=== PATIENT | male | born 1935 | race Caucasian/White ===

== ENCOUNTER 2017-07-08 16:01 | Inpatient (IN) | payer MEDICARE, OTHER ==
[~2017-07-08] VITALS: Ht 167.6 cm; Wt 64.4 kg
[2017-07-08 17:02] LABS: BASOPHILS % (AUTO) 0.2 % (0.0-2.0); EOSINOPHILS # (AUTO) 0.1 /CMM (0.0-0.7); EOSINOPHILS % (AUTO) 1.4 % (0.0-6.0); HEMATOCRIT 28 % (39-51); HEMOGLOBIN 9.4 g/dL (13.5-17.5); LYMPHOCYTES # (AUTO) 0.8 /CMM (0.8-4.8); LYMPHOCYTES % (AUTO) 10.1 % (20.0-44.0); MEAN CORPUSCULAR HEMOGLOBIN 29 PG (26.0-33.0); MEAN CORPUSCULAR HGB CONC 34 g/dl (31.0-36.0); MEAN CORPUSCULAR VOLUME 86 fL (80-96); MONOCYTES # (AUTO) 0.3 /CMM (0.1-1.30); MONOCYTES % (AUTO) 3.3 % (2.0-12.0); NEUTROPHILS # (AUTO) 6.7 /CMM (1.8-8.9); PLATELET COUNT (AUTO) 162 /CMM (150-450); RDW COEFFICIENT OF VARIATION 16.4 (11.5-15.0); RED BLOOD CELL COUNT(AUTO) 3.24 MIL/uL (4.5-6.0); WHITE BLOOD COUNT (AUTO) 7.9 K/uL (4.3-11.0)
[2017-07-08 17:10] LABS: APPEARANCE,URINE Clear (CLEAR); BILIRUBIN,URINE Negative (NEGATIVE); BLOOD, URINE Trace-intact Ery/uL (NEGATIVE); COLOR,URINE Yellow (YELLOW); KETONES,URINE Negative (NEGATIVE); LEUKOCYTE ESTERASE ,URINE Trace (NEGATIVE); NITRITE, URINE Negative (NEGATIVE); PROTEIN,URINE Negative (NEGATIVE); UGLUCOSE Negative (NEGATIVE); UROBILINOGEN,URINE 0.2 EU/dL (0.2)
[2017-07-08 17:14] LABS: CALCIUM, SERUM 7.8 mg/dL (8.5-10.1); CARBON DIOXIDE 29 mmol/L (21-32); CHLORIDE 101 mmol/L (98-107); CREATININE 0.8 mg/dL (0.6-1.3); GLUCOSE 105 mg/dL (74-106); POTASSIUM 3.9 mmol/L (3.5-5.1); SODIUM SERUM 137 mmol/L (136-145); UREA NITROGEN, BLOOD 32 mg/dL (7-18)
[2017-07-08 17:20] LABS: ALANINE AMINOTRANSFERASE 106 U/L (12-78); ALBUMIN 1.7 g/dL (3.4-5.0); ALKALINE PHOSPHATASE 129 U/L (46-116); ASPARTATE AMINOTRANSFERASE 71 U/L (15-37); BILIRUBIN,DIRECT 0.3 mg/dL (0.0-0.2); BILIRUBIN,TOTAL 0.7 mg/dL (0.2-1.0); TOTAL PROTEIN, SERUM 5.5 g/dL (6.4-8.2)
[2017-07-08 17:23] LABS: TROPONIN I < 0.017 ng/mL (0.00-0.056)
[2017-07-08 17:26] LABS: INR 1.36 (0.85-1.15)
[2017-07-08 17:30] LABS: BACTERIA,URINE Few /HPF (None Seen); CALCIUM OXALATE CRYSTALS,UR Rare /HPF (None Seen); SQUAMOUS EPITHELIAL CELL,UR Rare /HPF (None Seen); YEAST,URINE Moderate /HPF (None Seen)
[2017-07-08] MEDS ORDERED: ZINC220T PO (17:46)
[2017-07-08] MEDS ORDERED: DOCU100C36 PO (17:46)
[2017-07-08] MEDS ORDERED: ACET-868 PO ×2 (17:46)
[2017-07-08] MEDS ORDERED: ATOR20TA PO (17:46)
[2017-07-08] MEDS ORDERED: CRAN425C6 PO (17:46)
[2017-07-08] MEDS ORDERED: APIX5TAB PO (17:46)
[2017-07-08] MEDS ORDERED: POTA500T PO (17:46)
[2017-07-08] MEDS ORDERED: CRAN3875 PO (17:46)
[2017-07-08] MEDS ORDERED: DILT30TA35 PO (17:46)
[2017-07-08] MEDS ORDERED: FURO40TA5 PO (17:46)
[2017-07-08] MEDS ORDERED: FINA5TAB11 PO (17:46)
[2017-07-08] MEDS ORDERED: LEVO500T75 PO (17:46)
[2017-07-08] MEDS ORDERED: HYDR-552 PO (17:46)
[2017-07-08] MEDS ORDERED: MULT-213 PO (17:46)
[2017-07-08] MEDS ORDERED: OMEP40CA37 PO (17:46)
[2017-07-08] MEDS ORDERED: MAGN400O6 PO (17:46)
[2017-07-08] MEDS ORDERED: IPRA3AMP IH (17:46)
[2017-07-08] MEDS ORDERED: ASCO-340 PO (17:46)
[2017-07-08] MEDS ORDERED: METO25TA6 PO (17:46)
[2017-07-08] MEDS ORDERED: PIPERACILLIN /TAZOBACTAM 3.375 G in IV D5W 50 ML IV ONE (19:30)
[2017-07-08] MEDS ORDERED: VANCOMYCIN 1 GM in IV D5W 250 ML IV ONE (19:30)
[2017-07-08] MEDS ORDERED: VANCOMYCIN 1 GM VIAL ONE (19:34)
[2017-07-08] MEDS ORDERED: PIPERACILLIN /TAZOBACTAM 3.375 G VIAL IV ONE (19:34)
[2017-07-08 20:30] VITALS: BP 102/58
[2017-07-08] MEDS ORDERED: ACETAMINOPHEN 325 MG TABLET PO PRN (21:00)
[2017-07-08] MEDS ORDERED: ZOLPIDEM TARTRATE 5 MG TABLET PO PRN (21:00)
[2017-07-08] MEDS ORDERED: ONDANSETRON HCL/PF 4 MG/2 ML VIAL IVP PRN (21:00)
[2017-07-08] MEDS ORDERED: DAKINS QUARTER STRENGTH (0.125%) 480 ML BOTTLE TOP PRN (21:00)
[2017-07-08] MEDS ORDERED: HYDROCODONE/APAP 5/325MG 1 EACH TABLET PO PRN (21:00)
[2017-07-08] MEDS: ATORVASTATIN 10 MG TABLET PO SCH (22:31)
[2017-07-09] MEDS ORDERED: PIPERACILLIN /TAZOBACTAM 3.375 G VIAL IV ONE ×2 (01:08→05:25)
[2017-07-09] MEDS: PIPERACILLIN /TAZOBACTAM 3.375 G in IV D5W 100 ML IV SCH ×3 (01:30→13:44)
[2017-07-09] MEDS: DILTIAZEM HCL 30 MG TABLET PO SCH ×4 (05:35→18:00)
[2017-07-09 06:38] LABS: BASOPHILS % (AUTO) 0.3 % (0.0-2.0); EOSINOPHILS # (AUTO) 0.1 /CMM (0.0-0.7); EOSINOPHILS % (AUTO) 1.3 % (0.0-6.0); HEMATOCRIT 29 % (39-51); HEMOGLOBIN 9.8 g/dL (13.5-17.5); LYMPHOCYTES # (AUTO) 0.8 /CMM (0.8-4.8); LYMPHOCYTES % (AUTO) 11.1 % (20.0-44.0); MEAN CORPUSCULAR HEMOGLOBIN 31 PG (26.0-33.0); MEAN CORPUSCULAR HGB CONC 34 g/dl (31.0-36.0); MEAN CORPUSCULAR VOLUME 90 fL (80-96); MONOCYTES # (AUTO) 0.2 /CMM (0.1-1.30); MONOCYTES % (AUTO) 2.6 % (2.0-12.0); NEUTROPHILS # (AUTO) 6.1 /CMM (1.8-8.9); NEUTROPHILS % (AUTO) 84.7 % (43.0-81.0); PLATELET COUNT (AUTO) 149 /CMM (150-450); RED BLOOD CELL COUNT(AUTO) 3.21 MIL/uL (4.5-6.0); WHITE BLOOD COUNT (AUTO) 7.2 K/uL (4.3-11.0)
[2017-07-09 06:45] LABS: CALCIUM, SERUM 7.9 mg/dL (8.5-10.1); CARBON DIOXIDE 28 mmol/L (21-32); CHLORIDE 101 mmol/L (98-107); CREATININE 0.7 mg/dL (0.6-1.3); GLUCOSE 86 mg/dL (74-106); PHOSPHORUS 2.6 mg/dL (2.5-4.9); POTASSIUM 3.7 mmol/L (3.5-5.1); SODIUM SERUM 137 mmol/L (136-145); UREA NITROGEN, BLOOD 31 mg/dL (7-18)
[2017-07-09] MEDS ORDERED: FEE PK DOSING 1 MIN EA MC ONE (07:28)
[2017-07-09 08:00] VITALS: BP 101/61
[2017-07-09] MEDS ORDERED: Medication Not On Formulary EA (Cranberry Extract (Cranberry) 425 MG) PO SCH (09:00)
[2017-07-09] MEDS: METOPROLOL TARTRATE 25 MG TABLET PO SCH ×2 (09:00→17:00)
[2017-07-09] MEDS ORDERED: Medication Not On Formulary EA (Cran/Vitc/Mannose/Inulin/Brom (Uti-Stat Liquid) 30 ML) PO SCH (09:00)
[2017-07-09] MEDS: FUROSEMIDE 40 MG TABLET PO SCH (09:00)
[2017-07-09] MEDS: ZINC SULFATE 220 MG CAPSULE PO SCH (10:06)
[2017-07-09] MEDS: DOCUSATE SODIUM 100 MG CAPSULE PO SCH ×2 (10:06→18:03)
[2017-07-09] MEDS: MULTIVIT, IRON, MIN NO. 8, FA 1 TAB PO SCH (10:06)
[2017-07-09] MEDS: FINASTERIDE (5 MG) 5 MG TABLET PO SCH (10:07)
[2017-07-09] MEDS: ASCORBIC ACID 500 MG TABLET PO SCH (10:07)
[2017-07-09 11:04] LABS: CHOLESTEROL 63 mg/dL (<200); HDL CHOLESTEROL 28 mg/dL (40-60); LDL 31 mg/dL (0-99); TRIGLYCERIDES 57 mg/dL (30-150)
[2017-07-09] MEDS: APIXABAN 5 MG TABLET PO SCH ×2 (13:41→18:03)
[2017-07-09] MEDS ORDERED: VANCOMYCIN 1 GM in IV D5W 250 ML IV SCH (14:00)
[2017-07-09 16:00] VITALS: BP 118/68
[2017-07-09] MEDS: PIPERACILLIN /TAZOBACTAM 3.375 G in IV NS 0.9% 50 ML IV SCH (18:18)
[2017-07-09 20:00] VITALS: BP 119/60
[2017-07-09] MEDS: ATORVASTATIN 10 MG TABLET PO SCH (21:46)
[2017-07-09] MEDS: IV NS 0.9% 1,000 ML IV PRN (21:48)
[2017-07-10] MEDS: DILTIAZEM HCL 30 MG TABLET PO SCH ×4 (00:08→20:03)
[2017-07-10] MEDS: PIPERACILLIN /TAZOBACTAM 3.375 G in IV NS 0.9% 50 ML IV SCH ×2 (00:09→06:31)
[2017-07-10 07:55] LABS: CARBON DIOXIDE 27 mmol/L (21-32); CHLORIDE 103 mmol/L (98-107); CREATININE 0.7 mg/dL (0.6-1.3); GLUCOSE 89 mg/dL (74-106); POTASSIUM 3.5 mmol/L (3.5-5.1); SODIUM SERUM 138 mmol/L (136-145); UREA NITROGEN, BLOOD 31 mg/dL (7-18); VANCOMYCIN,TROUGH 21 ug/ml (12-20)
[2017-07-10 08:50] VITALS: BP 103/50
[2017-07-10] MEDS: METOPROLOL TARTRATE 25 MG TABLET PO SCH ×2 (09:00→18:44)
[2017-07-10] MEDS: FINASTERIDE (5 MG) 5 MG TABLET PO SCH (11:57)
[2017-07-10] MEDS: ASCORBIC ACID 500 MG TABLET PO SCH (11:57)
[2017-07-10] MEDS: MULTIVIT, IRON, MIN NO. 8, FA 1 TAB PO SCH (11:57)
[2017-07-10] MEDS: FUROSEMIDE 40 MG TABLET PO SCH (11:57)
[2017-07-10] MEDS: ZINC SULFATE 220 MG CAPSULE PO SCH (11:57)
[2017-07-10] MEDS: DOCUSATE SODIUM 100 MG CAPSULE PO SCH ×2 (11:57→18:43)
[2017-07-10] MEDS: APIXABAN 5 MG TABLET PO SCH ×2 (12:07→18:42)
[2017-07-10] MEDS: FLUCONAZOLE (100 MG) 100 MG TABLET PO SCH (13:54)
[2017-07-10] MEDS: VANCOMYCIN 1 GM in IV D5W 250 ML IV SCH (15:11)
[2017-07-10] MEDS: MEROPENEM 500 MG in IV NS 0.9% 50 ML IV SCH ×2 (15:12→22:51)
[2017-07-10] MEDS: LACTOBACILLUS RHAMNOSUS GG 1 EACH CAP.SPRINK PO SCH (18:43)
[2017-07-10 20:00] VITALS: BP 112/58
[2017-07-10] MEDS: ATORVASTATIN 10 MG TABLET PO SCH (21:58)
[2017-07-10] MEDS ORDERED: MEROPENEM 500 MG VIAL IV ONE (22:49)
[2017-07-11] MEDS: IV NS 0.9% 1,000 ML IV PRN ×2 (00:24→21:10)
[2017-07-11] MEDS ORDERED: MEROPENEM 500 MG VIAL IV ONE (05:21)
[2017-07-11] MEDS: MEROPENEM 500 MG in IV NS 0.9% 50 ML IV SCH ×3 (06:19→21:08)
[2017-07-11] MEDS: DILTIAZEM HCL 30 MG TABLET PO SCH ×5 (06:23→23:20)
[2017-07-11 08:00] VITALS: BP 118/68
[2017-07-11] MEDS: MULTIVIT, IRON, MIN NO. 8, FA 1 TAB PO SCH (08:54)
[2017-07-11] MEDS: ZINC SULFATE 220 MG CAPSULE PO SCH (08:54)
[2017-07-11] MEDS: FUROSEMIDE 40 MG TABLET PO SCH (08:54)
[2017-07-11] MEDS: LACTOBACILLUS RHAMNOSUS GG 1 EACH CAP.SPRINK PO SCH ×2 (08:54→17:00)
[2017-07-11] MEDS: DOCUSATE SODIUM 100 MG CAPSULE PO SCH ×2 (08:54→17:00)
[2017-07-11] MEDS: ASCORBIC ACID 500 MG TABLET PO SCH (08:54)
[2017-07-11] MEDS: FINASTERIDE (5 MG) 5 MG TABLET PO SCH (08:54)
[2017-07-11] MEDS: METOPROLOL TARTRATE 25 MG TABLET PO SCH ×2 (08:56→17:00)
[2017-07-11] MEDS: FLUCONAZOLE (100 MG) 100 MG TABLET PO SCH (08:56)
[2017-07-11] MEDS: APIXABAN 5 MG TABLET PO SCH ×2 (08:57→17:00)
[2017-07-11] MEDS: VANCOMYCIN 1 GM in IV D5W 250 ML IV SCH (14:00)
[2017-07-11 20:00] VITALS: BP 98/46
[2017-07-11] MEDS: ATORVASTATIN 10 MG TABLET PO SCH (21:11)
[2017-07-12] MEDS: MEROPENEM 500 MG in IV NS 0.9% 50 ML IV SCH ×3 (05:39→22:00)
[2017-07-12] MEDS: DILTIAZEM HCL 30 MG TABLET PO SCH ×3 (05:39→18:14)
[2017-07-12 06:35] LABS: CALCIUM, SERUM 7.5 mg/dL (8.5-10.1); CARBON DIOXIDE 29 mmol/L (21-32); CHLORIDE 102 mmol/L (98-107); CREATININE 0.7 mg/dL (0.6-1.3); GLUCOSE 84 mg/dL (74-106); POTASSIUM 3.2 mmol/L (3.5-5.1); SODIUM SERUM 137 mmol/L (136-145); UREA NITROGEN, BLOOD 21 mg/dL (7-18)
[2017-07-12 06:41] LABS: BASOPHILS % (AUTO) 0.1 % (0.0-2.0); EOSINOPHILS # (AUTO) 0.1 /CMM (0.0-0.7); EOSINOPHILS % (AUTO) 0.7 % (0.0-6.0); HEMATOCRIT 27 % (39-51); HEMOGLOBIN 9.2 g/dL (13.5-17.5); LYMPHOCYTES % (AUTO) 12.9 % (20.0-44.0); MEAN CORPUSCULAR HEMOGLOBIN 31 PG (26.0-33.0); MEAN CORPUSCULAR HGB CONC 34 g/dl (31.0-36.0); MEAN CORPUSCULAR VOLUME 90 fL (80-96); MONOCYTES # (AUTO) 0.3 /CMM (0.1-1.30); MONOCYTES % (AUTO) 4.1 % (2.0-12.0); NEUTROPHILS # (AUTO) 6.4 /CMM (1.8-8.9); NEUTROPHILS % (AUTO) 82.2 % (43.0-81.0); PLATELET COUNT (AUTO) 154 /CMM (150-450); RDW COEFFICIENT OF VARIATION 17.6 (11.5-15.0); RED BLOOD CELL COUNT(AUTO) 3.02 MIL/uL (4.5-6.0); WHITE BLOOD COUNT (AUTO) 7.8 K/uL (4.3-11.0)
[2017-07-12 08:00] VITALS: BP 129/66
[2017-07-12] MEDS: FINASTERIDE (5 MG) 5 MG TABLET PO SCH (10:12)
[2017-07-12] MEDS: FUROSEMIDE 40 MG TABLET PO SCH (10:12)
[2017-07-12] MEDS: METOPROLOL TARTRATE 25 MG TABLET PO SCH ×2 (10:12→18:13)
[2017-07-12] MEDS: LACTOBACILLUS RHAMNOSUS GG 1 EACH CAP.SPRINK PO SCH ×2 (10:12→18:14)
[2017-07-12] MEDS: MULTIVIT, IRON, MIN NO. 8, FA 1 TAB PO SCH (10:12)
[2017-07-12] MEDS: ZINC SULFATE 220 MG CAPSULE PO SCH (10:12)
[2017-07-12] MEDS: FLUCONAZOLE (100 MG) 100 MG TABLET PO SCH (10:13)
[2017-07-12] MEDS: APIXABAN 5 MG TABLET PO SCH ×2 (10:13→18:17)
[2017-07-12] MEDS: DOCUSATE SODIUM 100 MG CAPSULE PO SCH ×2 (10:13→18:13)
[2017-07-12] MEDS: ASCORBIC ACID 500 MG TABLET PO SCH (10:13)
[2017-07-12] MEDS ORDERED: POTASSIUM CHLORIDE 20 MEQ POWDER PACKET PO ONE (11:00)
[2017-07-12] MEDS ORDERED: POTASSIUM CHLORIDE 20 MEQ TAB.PRT.SR PO ONE (11:00)
[2017-07-12] MEDS: VANCOMYCIN 1 GM in IV D5W 250 ML IV SCH (15:07)
[2017-07-12 16:00] VITALS: BP 132/81
[2017-07-12] MEDS: IV NS 0.9% 1,000 ML IV PRN (18:11)
[2017-07-12 20:00] VITALS: BP 119/63
[2017-07-12] MEDS: ATORVASTATIN 10 MG TABLET PO SCH (22:00)
[2017-07-13] MEDS: DILTIAZEM HCL 30 MG TABLET PO SCH ×4 (05:27→17:36)
[2017-07-13] MEDS: MEROPENEM 500 MG in IV NS 0.9% 50 ML IV SCH ×3 (05:28→22:26)
[2017-07-13 08:00] VITALS: BP 119/69
[2017-07-13] MEDS ORDERED: DAPTOMYCIN 500 MG in IV NS 0.9% 50 ML IV SCH ×3 (08:00)
[2017-07-13] MEDS: APIXABAN 5 MG TABLET PO SCH ×2 (08:30→17:00)
[2017-07-13] MEDS: VORICONAZOLE 200 MG TABLET PO SCH ×2 (08:31→21:15)
[2017-07-13] MEDS: FINASTERIDE (5 MG) 5 MG TABLET PO SCH (08:31)
[2017-07-13] MEDS: ZINC SULFATE 220 MG CAPSULE PO SCH (08:31)
[2017-07-13] MEDS: ASCORBIC ACID 500 MG TABLET PO SCH (08:31)
[2017-07-13] MEDS: DOCUSATE SODIUM 100 MG CAPSULE PO SCH ×2 (08:32→17:00)
[2017-07-13] MEDS: FUROSEMIDE 40 MG TABLET PO SCH (08:32)
[2017-07-13] MEDS: LACTOBACILLUS RHAMNOSUS GG 1 EACH CAP.SPRINK PO SCH ×2 (08:32→17:00)
[2017-07-13] MEDS: METOPROLOL TARTRATE 25 MG TABLET PO SCH ×2 (08:32→17:00)
[2017-07-13] MEDS: MULTIVIT, IRON, MIN NO. 8, FA 1 TAB PO SCH (08:36)
[2017-07-13] MEDS: LINEZOLID RTU BAG 600 MG in PREMIX 1 EA IV SCH ×2 (09:56→20:30)
[2017-07-13 16:00] VITALS: BP 125/57
[2017-07-13 16:00] LABS: CREATINE KINASE, TOTAL 21 U/L (39-308)
[2017-07-13 16:01] LABS: ALANINE AMINOTRANSFERASE 70 U/L (12-78); ALBUMIN 1.7 g/dL (3.4-5.0); ALKALINE PHOSPHATASE 119 U/L (46-116); ASPARTATE AMINOTRANSFERASE 55 U/L (15-37); BILIRUBIN,TOTAL 0.6 mg/dL (0.2-1.0); CALCIUM, SERUM 7.8 mg/dL (8.5-10.1); CARBON DIOXIDE 28 mmol/L (21-32); CHLORIDE 98 mmol/L (98-107); CREATININE 0.8 mg/dL (0.6-1.3); GLUCOSE 103 mg/dL (74-106); POTASSIUM 3.5 mmol/L (3.5-5.1); SODIUM SERUM 133 mmol/L (136-145); TOTAL PROTEIN, SERUM 5.6 g/dL (6.4-8.2); UREA NITROGEN, BLOOD 19 mg/dL (7-18)
[2017-07-13] MEDS: IV NS 0.9% 1,000 ML IV PRN (19:32)
[2017-07-13 20:00] VITALS: BP 108/60
[2017-07-13] MEDS ORDERED: ATORVASTATIN 10 MG TABLET PO SCH (22:00)
[2017-07-14] VITALS: BP 109/66
[2017-07-14] MEDS: MEROPENEM 500 MG in IV NS 0.9% 50 ML IV SCH ×2 (05:53→14:21)
[2017-07-14] MEDS: DILTIAZEM HCL 30 MG TABLET PO SCH ×4 (05:57→17:46)
[2017-07-14 08:00] VITALS: BP 97/62
[2017-07-14] MEDS: LINEZOLID RTU BAG 600 MG in PREMIX 1 EA IV SCH (09:50)
[2017-07-14] MEDS: LACTOBACILLUS RHAMNOSUS GG 1 EACH CAP.SPRINK PO SCH ×2 (09:50→17:45)
[2017-07-14] MEDS: FINASTERIDE (5 MG) 5 MG TABLET PO SCH (09:51)
[2017-07-14] MEDS: MULTIVIT, IRON, MIN NO. 8, FA 1 TAB PO SCH (09:51)
[2017-07-14] MEDS: DOCUSATE SODIUM 100 MG CAPSULE PO SCH ×2 (09:51→17:45)
[2017-07-14] MEDS: FUROSEMIDE 40 MG TABLET PO SCH (09:51)
[2017-07-14] MEDS: VORICONAZOLE 200 MG TABLET PO SCH (09:54)
[2017-07-14] MEDS: ASCORBIC ACID 500 MG TABLET PO SCH (09:54)
[2017-07-14] MEDS: METOPROLOL TARTRATE 25 MG TABLET PO SCH ×2 (09:54→17:46)
[2017-07-14] MEDS: ZINC SULFATE 220 MG CAPSULE PO SCH (09:54)
[2017-07-14] MEDS: APIXABAN 5 MG TABLET PO SCH ×2 (09:55→17:45)
[2017-07-14 16:00] VITALS: BP 110/50
[2017-07-14 17:46] VITALS: BP 110/60
[2017-07-14] MEDS ORDERED: LINEZOLID 600 MG TABLET PO SCH (21:00)
== END 2017-07-14 19:20 | DRG 856 ==
LOC: ER 16:02 → MED 19:36 → MEDSG2 07-14 01:19
PROVIDERS: ADMIT Nurse Practitioner Acute Care; ATTEND Nurse Practitioner Acute Care
PROC: 0KBT0ZZ Excision of Left Lower Leg Muscle, Open Approach (ICD-10-PCS; principal; 2017-07-09)
PROC: 0KBP0ZZ Excision of Left Hip Muscle, Open Approach (ICD-10-PCS; 2017-07-09)
PROC: 0KBN0ZZ Excision of Right Hip Muscle, Open Approach (ICD-10-PCS; 2017-07-09)
PROC: 0QB10ZZ Excision of Sacrum, Open Approach (ICD-10-PCS; 2017-07-10)
PROC: 05H533Z Insertion of Infusion Device into Right Subclavian Vein, Percutaneous Approach (ICD-10-PCS; 2017-07-10)
DX: T81.4XXA Infection following a procedure, initial encounter (principal); E43 Unspecified severe protein-calorie malnutrition; J18.9 Pneumonia, unspecified organism; L89.154 Pressure ulcer of sacral region, stage 4; J90 Pleural effusion, not elsewhere classified; D68.59 Other primary thrombophilia; E88.09 Other disorders of plasma-protein metabolism, not elsewhere classified; L03.116 Cellulitis of left lower limb; T81.31XA Disruption of external operation (surgical) wound, not elsewhere classified, initial encounter; J98.11 Atelectasis; B37.49 Other urogenital candidiasis; M86.8X8 Other osteomyelitis, other site; I48.91 Unspecified atrial fibrillation; S81.802A Unspecified open wound, left lower leg, initial encounter; E83.51 Hypocalcemia; D63.8 Anemia in other chronic diseases classified elsewhere; E78.5 Hyperlipidemia, unspecified; E87.6 Hypokalemia; I10 Essential (primary) hypertension; Z79.01 Long term (current) use of anticoagulants; Z86.73 Personal history of transient ischemic attack (TIA), and cerebral infarction without residual deficits; Z86.79 Personal history of other diseases of the circulatory system; Z88.0 Allergy status to penicillin; R74.0 Nonspecific elevation of levels of transaminase and lactic acid dehydrogenase [LDH]; Z68.22 Body mass index [BMI] 22.0-22.9, adult; L89.620 Pressure ulcer of left heel, unstageable; Y83.8 Other surgical procedures as the cause of abnormal reaction of the patient, or of later complication, without mention of misadventure at the time of the procedure; Y92.129 Unspecified place in nursing home as the place of occurrence of the external cause; L89.890 Pressure ulcer of other site, unstageable; Z98.62 Peripheral vascular angioplasty status; M62.50 Muscle wasting and atrophy, not elsewhere classified, unspecified site; I73.9 Peripheral vascular disease, unspecified; B95.62 Methicillin resistant Staphylococcus aureus infection as the cause of diseases classified elsewhere; B95.2 Enterococcus as the cause of diseases classified elsewhere; Z16.21 Resistance to vancomycin
CPT/HCPCS: 36415; 71045-TC; 80048-TC; 80053-TC; 80061-TC; 80076-TC; 80202-TC; 81000-TC; 82550-TC; 83605-TC; 83735-TC; 84100-TC; 84134-TC; 84484-TC; 85025-TC; 85652-TC; 85730-TC; 87040-TC; 87070-TC; 87081-TC; 87086-TC; 87186-TC; 92611-TC; A4216; A4606; A6253; A6402; A6403; J0878; J2020; J2185; J2543; J3370; J7030; J7060; Z7610